=== PATIENT | male | born 1975 | race Caucasian/White ===

== ENCOUNTER 2016-04-02 13:42 | Emergency (ER) | payer OTHER ==
--- NOTE | 2016-04-02 14:00 | ER Document Report ---
ED Medical Screen (RME) - General Stated Complaint: LEFT LEG AND ANKLE PAIN Notes: 41 yo male c/o pain, swelling and color change (purplish) to left ankle and foot pain from mid calf to foot x 1 week. pt has arthrocopic surgery to ankle 4 wks ago, cast [place] 2 wks ago[place] [facility] no chest pain or shortness of breath. Discussed with Dr Minaya. recommends doppler TRAVEL OUTSIDE OF THE [place] IN LAST 30 DAYS: No - Related Data Allergies/Adverse Reactions: Penicillins Adverse Reaction (Verified 04/02/16 13:51) Physical Exam - Vital signs Vitals: Temp Pulse Resp BP Pulse Ox 97.6 F 75 18 136/86 H 99 04/02/16 13:49 04/02/16 13:49 04/02/16 13:49 04/02/16 13:49 04/02/16 13:49 Course - Vital Signs Vital signs: Temp Pulse Resp BP Pulse Ox 97.6 F 75 18 136/86 H 99 04/02/16 13:49 04/02/16 13:49 04/02/16 13:49 04/02/16 13:49 04/02/16 13:49
--- NOTE | 2016-04-02 15:50 | ER Document Report ---
ED Extremity Problem, Lower - General Chief Complaint: Leg Pain Stated Complaint: LEFT LEG AND ANKLE PAIN Notes: Patient is a 41-year-old male presents emergency Department complaining of left ankle pain, swelling and color change. Patient states that he recently had left arthroscopic surgery on his ankle with zoila Orozco on March 07, got his cast off 2 weeks ago and over the last 7 days he's noticed more pain in his posterior calf and color changes to the left foot. Past medical history significant for hypertension TRAVEL OUTSIDE OF THE [place] IN LAST 30 DAYS: No - Related Data Allergies/Adverse Reactions: Penicillins Adverse Reaction (Verified 04/02/16 13:51) Past Medical History - Social History Smoking Status: Never Smoker Chew tobacco use (# tins/day): No Frequency of alcohol use: None Drug Abuse: None Family History: Reviewed & Not Pertinent Patient has suicidal ideation: No Patient has homicidal ideation: No Renal/ Medical History: Denies: Hx Peritoneal Dialysis Review of Systems - Review of Systems Constitutional: No symptoms reported EENT: No symptoms reported Cardiovascular: No symptoms reported Respiratory: No symptoms reported Gastrointestinal: No symptoms reported Genitourinary: No symptoms reported Male Genitourinary: No symptoms reported Musculoskeletal: Joint pain, Ankle swelling Skin: Change in color Hematologic/Lymphatic: No symptoms reported Neurological/Psychological: No symptoms reported Physical Exam - Vital signs Vitals: Temp Pulse Resp BP Pulse Ox 97.6 F 75 18 136/86 H 99 04/02/16 13:49 04/02/16 13:49 04/02/16 13:49 04/02/16 13:49 04/02/16 13:49 - Notes Notes: PHYSICAL EXAM GENERAL: Alert, interacts well. EXTREMITIES: Moves all 4 extremities spontaneously. No edema, radial and dorsalis pedis pulses 2/4 bilaterally. No cyanosis. May refill less than 2 seconds in all lower extremity digits NEUROLOGICAL: Alert and oriented x3. Normal speech. PSYCH: Normal affect, normal mood. SKIN: Warm, dry, normal turgor. No rashes or lesions noted. Course - Re-evaluation Re-evalutation: 04/02/16 16:10 This is a 41-year-old male who presents emergency Department with left foot swelling, color changes in pain after surgery about one month ago on the same foot. Doppler came back negative for DVT. Patient is to follow-up with orthopedist on Thursday. Will discharge home and can follow up as scheduled - Vital Signs Vital signs: Temp Pulse Resp BP Pulse Ox 97.6 F 75 18 136/86 H 99 04/02/16 13:49 04/02/16 13:49 04/02/16 13:49 04/02/16 13:49 04/02/16 13:49 - Diagnostic Test Radiology reviewed: Reports reviewed Discharge - Discharge Clinical Impression: Ankle swelling Qualifiers: Laterality: left Qualified Code(s): M25.472 - Effusion, left ankle Condition: Good Disposition: HOME, SELF-CARE Instructions: Use of Snwl-Too-Khzwikg Ibuprofen ([facility]), Acetaminophen Additional Instructions: This time he do not have any evidence of a blood clot in the leg. Please follow-up with your orthopedist this coming Thursday Forms: Elevated Blood Pressure
[2016-04-02 16:25] VITALS: BP 139/88
--- NOTE | 2016-04-02 18:50 | XCELERA REPORT ---
[address] [address] Lower Extremity Venous Evaluation Name: VERONIKA MAXWELL Age: 41 yrs Gender: Male : 1975 Patient Status: Preadmit Patient Location: ER Study Date: 04/02/2016 03:16 PM Procedure: Color flow and duplex imaging of the veins of the left lower extremity as well as the right Common Femoral vein. Reason For Study: pain left calf and foot, + arthroscopic surg Ordering Physician: ANA LUISA GILLESPIE Performed By: Jazmín Peoples Right Sided Venous Evaluation The right common femoral vein is fully compressible. Spontaneous and phasic flow is present in the right common femoral vein. Left Sided Venous Evaluation Normal vessel filling wall to wall, compression and augmentation as well as Colour flow down to the infrageniculate veins. Critical Findings Called in to the ER. Interpretation Summary No duplex evidence of DVT or obstruction in the left lower extremity nor in the right Common Femoral vein. : ANA LUISA GILLESPIE > Barry Sykes
== END 2016-04-02 16:18 | disposition home or self-care (01) ==
LOC: ER 13:42
DX: M25.472 Effusion, left ankle (principal); M79.605 Pain in left leg; M25.572 Pain in left ankle and joints of left foot
CPT/HCPCS: 93971; 99284

== ENCOUNTER → 2019-05-26 | Outpatient (CLI) | payer OTHER ==
--- NOTE | 2019-05-26 12:08 | RADIOLOGY REPORT (SQ) ---
EXAM DESCRIPTION: LUMBAR SPINE COMPLETE IMAGES COMPLETED DATE/TIME: 05/26/2019 10:52 am REASON FOR STUDY: LOW BACK PAIN M54.5 LOW BACK PAIN COMPARISON: None. NUMBER OF VIEWS: Five views including obliques. TECHNIQUE: AP, lateral, oblique, and sacral radiographic images acquired of the lumbar spine. LIMITATIONS: None. FINDINGS: MINERALIZATION: Normal. SEGMENTATION: Normal. No transitional anatomy. ALIGNMENT: Slight scoliosis lumbar spine. VERTEBRAE: Maintained height. No fracture or worrisome bone lesion. DISCS: Preserved height. Minimal anterior osteophytic spurring. POSTERIOR ELEMENTS: Pedicles and facets are intact. No pars defect or posterior arch defects. HARDWARE: None in the spine. PARASPINAL SOFT TISSUES: Normal. PELVIS: Intact as visualized. No fractures or worrisome bone lesions. SI joints intact. OTHER: No other significant finding. IMPRESSION: 1. Slight scoliosis and minimal anterior osteophytic spurring. 2. No acute osseous findings. TECHNICAL DOCUMENTATION: JOB ID: [id number] 2010 [employer]- All Rights Reserved Reading location - IP/workstation name: [email or web address]
== END ==
LOC: OD 10:25
PROVIDERS: ATTEND Family Medicine
DX: M41.86 Other forms of scoliosis, lumbar region (principal); M54.5 Low back pain
CPT/HCPCS: 72110

== ENCOUNTER → 2019-07-15 | Outpatient (CLI) | payer OTHER ==
--- NOTE | 2019-07-15 17:28 | RADIOLOGY REPORT (SQ) ---
EXAM DESCRIPTION: KUB IMAGES COMPLETED DATE/TIME: 07/15/2019 5:16 pm REASON FOR STUDY: UNSPECIFIED ABDOMINAL PAIN R31.9 HEMATURIA, UNSPECIFIED R10.9 UNSPECIFIED ABDOMI NAL PAIN COMPARISON: None. NUMBER OF VIEWS: One view. TECHNIQUE: Supine radiographic image of the abdomen acquired. LIMITATIONS: None. FINDINGS: BOWEL GAS PATTERN: Normal bowel gas pattern. No dilated loops. CALCIFICATIONS: No suspicious calcifications. SOFT TISSUES: No gross mass or suggestion of organomegaly. HARDWARE: None in the abdomen. BONES: No acute fracture. No worrisome bone lesions. OTHER: No other significant finding. IMPRESSION: NO RADIOGRAPHIC EVIDENCE FOR ACUTE ABDOMINAL DISEASE. TECHNICAL DOCUMENTATION: JOB ID: [id number] 2010 [employer]- All Rights Reserved Reading location - IP/workstation name: [email or web address]
== END ==
LOC: OD 16:55
PROVIDERS: ATTEND Family Medicine
DX: R31.9 Hematuria, unspecified (principal); R10.9 Unspecified abdominal pain
CPT/HCPCS: 74018

== ENCOUNTER 2019-10-26 06:44 | Day surgery (SDC) | payer OTHER ==
[2019-10-26] MEDS ORDERED: ONDANSETRON HCL INJ/PF 4 MG/2 ML SDV ONE (06:56)
[2019-10-26] MEDS ORDERED: FENTANYL CITRATE INJ/PF 100 MCG/2 ML AMPUL ONE ×2 (06:57→08:49)
[2019-10-26] MEDS ORDERED: MIDAZOLAM 2 MG/2 ML INJ ONE (06:57)
[2019-10-26] MEDS ORDERED: PROPOFOL INJ 200 MG/20 ML VIAL IV ONE (06:57)
[2019-10-26] MEDS ORDERED: LIDOCAINE 2% INJ-PF (100 MG/5 ML) SYRINGE ONE (06:58)
[2019-10-26] MEDS ORDERED: BUPIVACAINE HCL 0.5 % INJ/PF 30 ML SDV ONE (07:33)
[2019-10-26] MEDS ORDERED: LIDOCAINE 2% INJ (20 MG/ML) 20 ML MDV ONE (07:34)
[2019-10-26] MEDS ORDERED: FAMOTIDINE INJ/PF 20 MG/2 ML SDV IV ONE (08:40)
[2019-10-26] MEDS: NORMAL SALINE INJ/PF 0.9% 10 ML SDV ONE ×2 (09:00)
[2019-10-26] MEDS: POLYMYXIN B SULFATE INJ 500000 UNIT VIAL ONE ×2 (09:00)
[2019-10-26] MEDS: BACITRACIN INJ 50,000 UNIT VIAL ONE ×2 (09:00)
[2019-10-26] MEDS: BUPIVACAINE INJ/PF LIPOSOME/PF 266 MG/20 ML SDV ONE ×3 (09:14→09:16)
--- NOTE | 2019-10-26 19:08 | Operative Report ---
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 POSTOPERATIVE DIAGNOSIS: Same. OPERATION: Excision of nerve left foot. SURGEON: CLAUDIA WOODS SITE IDENTIFICATION SPECIALIST: ISRAEL BUSTILLO ANESTHESIA: LMAC TISSUE REMOVED OR ALTERED: Neuroma. COMPLICATIONS: None. ESTIMATED BLOOD LOSS: <1.0ml PROCEDURE: This patient was brought to the operating room and placed on the surgical table in a supine position. Following intravenous sedation and regional local anesthesia the surgical site was prepped and draped in the normal sterile fashion. A pneumatic tourniquet was placed proximal to the ankle malleoli and sterile draping was completed. An esmark was applied for exsanguination and the tourniquet was inflated to 250mmHg for hemostasis. The esmark was removed. Attention was then directed to the left foot where, utilizing a # 15 blade, a 3 cm. linear incision was made between the third and fourth metatarsal heads. The incision was deepened through the subcutaneous tissues and the superficial fascia. All bleeding vessels were cauterized with a bipolar cautery as needed. Dissection was carried down to the level of metatarsal heads identifying the transverse intermetatarsal ligament. A freer elevator is placed inferior to the intermetatarsal ligament, protecting the common digital nerve, the ligament was then released. The common plantar digital nerve was then identified and appeared to be thickened, fibrotic and adherent to the adjacent soft tissues as it coursed distally. In fact, a separation into the digital nerve branches could not be easily discerned. Microsurgical instruments and technique are used and an internal neurolysis was attempted on this fibrosed nerve over a 5cm segment and the thickened epineurium could not be seperated from the underlying nerve tissue. It was decided to perform a nerve resection. The branches were follwed as far distal as possible and transected with a scissors. The nerve was traced proximal to the area of the intermetatarsal ligament and likewise transected, leaving enough nerve tissue to be sutured to an adjacent muscle belly. The resected nerve was removed and preserved for pathology. The distal stump of the nerve was then sutured into an interosseous muscle belly with simple suture of 5- nylon. Care was taken to avoid violating the nerve axon. The wound was flushed with sterile antibiotic solution. The wound is closed with 4-0 Vicryl simple interrupted intradermal sutures. Skin closure was accomplished using 5-0 Vicryl in an interrupted horizontal mattress suture. Then a dressing of Tabares silk, 4x4's, fluff, matt, kerlix and coflex was applied. The tourniquet was re leased. Excellent capillary refill to all the digits was observed without excessive bleeding noted. The patient tolerated procedure and anesthesia well and left the OR in stable condition with all vital signs stable. Patient was taken to the recovery room.
== END 2019-10-26 10:51 | disposition home or self-care (01) ==
LOC: SC 06:44
PROVIDERS: ATTEND Preventive Medicine Undersea and Hyperbaric Medicine
DX: G57.62 Lesion of plantar nerve, left lower limb (principal); Z03.818 Encounter for observation for suspected exposure to other biological agents ruled out; I10 Essential (primary) hypertension; G47.33 Obstructive sleep apnea (adult) (pediatric); Z88.0 Allergy status to penicillin; Z79.899 Other long term (current) drug therapy
CPT/HCPCS: 87635; 88305 ×2; 00142; 28080; J2250; J3490 ×5; J3010; J2001; J2405; J2704; S0028; C9290; C9803; 142; L3260